=== PATIENT | male | born 1965 | race Two or more races ===

== ENCOUNTER 2023-11-12 12:00 | Inpatient (IN) | payer OTHER ==
[~2023-11-12] VITALS: Ht 190.5 cm; Wt 108.9 kg
[2023-11-12] MEDS ORDERED: AVALIDE 300-121 EACH (13:45)
[2023-11-12] MEDS ORDERED: CARVEDILOL12.5 MG (13:45)
[2023-11-19] MEDS ORDERED: LIDOCAINE HCL 1%/EPINEPHRINE 20ML VIAL IJ ONE ×2 (13:29→15:00)
[2023-11-19] MEDS ORDERED: BUPIVACAINE HCL/Mpf 0.5% 10ML VIAL ONE (13:29)
[2023-11-19] MEDS ORDERED: METRONIDAZOLE/SODIUM CHLORIDE 500 MG/100 ML PIGGYBACK IV ONE ×2 (13:29→15:00)
[2023-11-19] MEDS ORDERED: BUPIVACAINE HCL/PF 0.25% 30ML VIAL InF ONE (15:00)
[2023-11-19] MEDS ORDERED: levoFLOXacin IN DEXTROSE 5 % 5 MG/ML PIGGYBAG IV ONE (15:00)
[2023-11-19] MEDS ORDERED: DEXTROSE 50 % IN WATER 0.5 G/ML DISP.SYRIN IV PRN (17:15)
[2023-11-19] MEDS ORDERED: 0.9 % SODIUM CHLORIDE 1,000 ML IV SCH (17:15)
[2023-11-19] MEDS ORDERED: OxyCODONE HCL 5 MG TABLET (ROXICODONE) PO PRN (17:15)
[2023-11-19] MEDS ORDERED: ONDANSETRON HCL 2 MG/ML VIAL IV PRN (17:15)
[2023-11-19] MEDS ORDERED: MORPHINE SULFATE 4 MG/ML CARTRIDGE IV PRN (17:15)
[2023-11-19 19:48] LABS: HEMATOCRIT 41.9 % (39.0-48.0); HEMOGLOBIN 14.2 g/dL (13-16.00); MEAN CORPUSCULAR HEMOGLOBIN 30.1 pg (27.00-32.0); MEAN CORPUSCULAR HGB CONC 33.8 g/dl (32.0-36.0); PLATELET COUNT 238 K/uL (150-450); RED BLOOD COUNT 4.71 M/uL (4.00-6.00); RED CELL DISTRIBUTION WIDTH 13.5 % (11.5-14.5)
[2023-11-19] MEDS ORDERED: ACETAMINOPHEN 500 MG GEL..CAP PO SCH (20:00)
[2023-11-19 20:25] LABS: ALBUMIN 3.4 gm/dL (3.4-5.0); CALCIUM 8.9 mg/dL (8.5-10.1); CREATININE SERUM 1.02 mg/dL (0.70-1.30); GFR 75.28; MAGNESIUM 2.2 mg/dL (1.8-2.4); POTASSIUM 4.43 mEq/L (3.5-5.1)
[2023-11-19] MEDS ORDERED: FAMOTIDINE/PF 20 MG/2 ML VIAL ONE (20:37)
[2023-11-19] MEDS ORDERED: FAMOTIDINE/PF 20 MG/2 ML VIAL IV PUSH SCH (21:00)
[2023-11-20] MEDS ORDERED: GABAPENTIN 300 MG CAPSULE PO SCH (01:00)
[2023-11-20] MEDS ORDERED: METRONIDAZOLE/SODIUM CHLORIDE 500 MG/100 ML PIGGYBACK IV SCH (01:00)
[2023-11-20] MEDS ORDERED: ENALAPRILAT DIHYDRATE 1.25 MG/ML VIAL IV PRN (04:30)
[2023-11-20] MEDS ORDERED: HYDROCHLOROTHIAZIDE 12.5 MG CAPSULE PO SCH (09:00)
[2023-11-20] MEDS ORDERED: HYOSCYAMINE SULFATE 0.125 MG TAB.SUBL SL SCH (09:00)
[2023-11-20] MEDS ORDERED: IRBESARTAN 300 MG TABLET PO SCH (09:00)
[2023-11-20] MEDS ORDERED: CARVEDILOL 25 MG TABLET PO SCH (09:00)
[2023-11-20 10:29] LABS: HEMOGLOBIN 14.2 g/dL (13-16.00); MEAN CELL VOLUME 89.4 fL (80.0-100.00); MEAN CORPUSCULAR HEMOGLOBIN 30.2 pg (27.00-32.0); MEAN CORPUSCULAR HGB CONC 33.8 g/dl (32.0-36.0); PLATELET COUNT 249 K/uL (150-450); RED BLOOD COUNT 4.69 M/uL (4.00-6.00); RED CELL DISTRIBUTION WIDTH 13.4 % (11.5-14.5)
[2023-11-20 11:09] LABS: ALBUMIN 2.9 gm/dL (3.4-5.0); CALCIUM 8.4 mg/dL (8.5-10.1); CREATININE SERUM 0.74 mg/dL (0.70-1.30); GFR 109.02; MAGNESIUM 1.9 mg/dL (1.8-2.4); PHOSPHOROUS 2.8 mg/dL (2.5-4.9); POTASSIUM 4.36 mEq/L (3.5-5.1)
[2023-11-20] MEDS ORDERED: ENOXAPARIN SODIUM 40 MG/0.4 ML SYRINGE SUBCUTANEO SCH (17:00)
[2023-11-21 06:50] LABS: HEMOGLOBIN 14.4 g/dL (13-16.00); MEAN CORPUSCULAR HEMOGLOBIN 30.5 pg (27.00-32.0); MEAN CORPUSCULAR HGB CONC 34.2 g/dl (32.0-36.0); PLATELET COUNT 219 K/uL (150-450); RED BLOOD COUNT 4.72 M/uL (4.00-6.00); RED CELL DISTRIBUTION WIDTH 13.4 % (11.5-14.5)
[2023-11-21 07:35] LABS: CALCIUM 8.3 mg/dL (8.5-10.1); CREATININE SERUM 0.84 mg/dL (0.70-1.30); GFR 94.18; MAGNESIUM 1.8 mg/dL (1.8-2.4); PHOSPHOROUS 2.3 mg/dL (2.5-4.9); POTASSIUM 4.4 mEq/L (3.5-5.1)
[2023-11-21] MEDS ORDERED: ENOXAPARIN SODIUM 40 MG/0.4 ML SYRINGE SUBCUTANEO SCH (09:00)
[2023-11-23 07:40] LABS: HEMATOCRIT 34.6 % (39.0-48.0); HEMOGLOBIN 11.8 g/dL (13-16.00); MEAN CELL VOLUME 88.4 fL (80.0-100.00); MEAN CORPUSCULAR HEMOGLOBIN 30.2 pg (27.00-32.0); MEAN CORPUSCULAR HGB CONC 34.1 g/dl (32.0-36.0); PLATELET COUNT 251 K/uL (150-450); RED BLOOD COUNT 3.91 M/uL (4.00-6.00); RED CELL DISTRIBUTION WIDTH 12.9 % (11.5-14.5)
[2023-11-23 08:45] LABS: BILIRUBIN TOTAL 1.43 mg/dL (0.3-1.2); CALCIUM 8.1 mg/dL (8.5-10.1); CREATININE SERUM 0.56 mg/dL (0.70-1.30); GFR 150.38; GLOBULINA 3.7 G/DL (2.4-3.5); TOTAL PROTEIN 5.7 gm/dL (6.4-8.2)
[2023-11-23] MEDS ORDERED: HYOSCYAMINE0.125 M1 SL (11:02)
[2023-11-23] MEDS ORDERED: PEPCID AC20 MG PO (11:07)
[2023-11-23] MEDS ORDERED: TRAM1TAB98 PO (11:07)
[2023-11-23] MEDS ORDERED: INTESTINEX680 M1 PO (11:07)
[2023-11-23] MEDS ORDERED: PERCOCET 5-3251 EACH PO (11:18)
[2023-11-23] MEDS ORDERED: POTASSIUM CHLORIDE 10 MEQ CAPSULE PO NR (11:30)
== END 2023-11-23 13:30 | disposition home or self-care (01) | DRG 331 ==
LOC: O/R 11-19 10:14 → SURH 11-19 11:45
PROVIDERS: Internal Medicine Geriatric Medicine; ADMIT Surgery; ATTEND Surgery
PROC: 0DTL4ZZ Resection of Transverse Colon, Percutaneous Endoscopic Approach (ICD-10-PCS; 2023-11-19)
PROC: 0DTM4ZZ Resection of Descending Colon, Percutaneous Endoscopic Approach (ICD-10-PCS; 2023-11-19)
PROC: 0DTN4ZZ Resection of Sigmoid Colon, Percutaneous Endoscopic Approach (ICD-10-PCS; 2023-11-19)
PROC: 0DTF4ZZ Resection of Right Large Intestine, Percutaneous Endoscopic Approach (ICD-10-PCS; principal; 2023-11-19 11:45)
DX: D12.2 Benign neoplasm of ascending colon (principal); D12.0 Benign neoplasm of cecum; D12.3 Benign neoplasm of transverse colon; K63.5 Polyp of colon; R59.0 Localized enlarged lymph nodes; D72.828 Other elevated white blood cell count; I10 Essential (primary) hypertension; Z88.6 Allergy status to analgesic agent; Z88.0 Allergy status to penicillin

== ENCOUNTER 2023-12-28 13:55 | Inpatient (IN) | payer OTHER ==
[~2023-12-28] VITALS: Ht 190.5 cm; Wt 100.7 kg
[~2023-12-28 13:55] MED LIST: AVALIDE 300-121 EACH; CARVEDILOL12.5 MG; HYOSCYAMINE0.125 M1 SL; INTESTINEX680 M1 PO; PEPCID AC20 MG PO; PERCOCET 5-3251 EACH PO; TRAM1TAB98 PO
[2023-12-28] MEDS ORDERED: MULTIVIT INFUSN,ADULT 4,VIT K 10 ML VIAL IV ONE (16:30)
[2023-12-28] MEDS ORDERED: 0.9 % SODIUM CHLORIDE 500 ML IV ONE (16:30)
[2023-12-28 17:19] LABS: HEMATOCRIT 34.6 % (39.0-48.0); HEMOGLOBIN 11.7 g/dL (13-16.00); MEAN CELL VOLUME 83.2 fL (80.0-100.00); MEAN CORPUSCULAR HEMOGLOBIN 28.1 pg (27.00-32.0); MEAN CORPUSCULAR HGB CONC 33.8 g/dl (32.0-36.0); PLATELET COUNT 519 K/uL (150-450); RED BLOOD COUNT 4.15 M/uL (4.00-6.00); RED CELL DISTRIBUTION WIDTH 13.8 % (11.5-14.5)
[2023-12-28 17:37] LABS: ALBUMIN 2.5 gm/dL (3.4-5.0); BILIRUBIN TOTAL 0.8 mg/dL (0.3-1.2); CALCIUM 9.3 mg/dL (8.5-10.1); CREATININE SERUM 1.16 mg/dL (0.70-1.30); GFR 64.66; GLOBULINA 6.5 G/DL (2.4-3.5); POTASSIUM 3.2 mEq/L (3.5-5.1)
[2023-12-28] MEDS ORDERED: ONDANSETRON HCL 2 MG/ML VIAL IV ONE (18:15)
[2023-12-28 18:48] LABS: PH,URINE 5.5 (5.0-8.0); URINE APPEARANCE Turbid; URINE BILIRRUBIN Moderate (NEGATIVE); URINE BLOOD Negative; URINE COLOR Orange; URINE GLUCOSE Negative (NEGATIVE); URINE KETONE Trace (NEGATIVE); URINE LEUKOCYTE Small; URINE NITRATE Negative
[2023-12-28 18:53] LABS: URINE BACTERIA 75.5 uL (0.0-1933); URINE EPITHELIAL CELLS 33.6 uL (0.0-38.8); URINE RBC 20.6 uL (0.0-20.8); URINE WBC 29.6 uL (0.0-23.2)
[2023-12-28 19:14] LABS: URINE CAST > 21.83 uL (0.0-1.40); URINE PROTEIN 100 (NEGATIVE)
[2023-12-28 19:37] LABS: AMYLASE 34 U/L (25-115); LIPASE 34 U/L (13-75)
[2023-12-28 23:12] LABS: HEMOGLOBIN 10.7 g/dL (13-16.00); MEAN CORPUSCULAR HEMOGLOBIN 28.1 pg (27.00-32.0); MEAN CORPUSCULAR HGB CONC 33.4 g/dl (32.0-36.0); PLATELET COUNT 453 K/uL (150-450); RED BLOOD COUNT 3.81 M/uL (4.00-6.00); RED CELL DISTRIBUTION WIDTH 13.9 % (11.5-14.5)
[2023-12-28] MEDS ORDERED: levoFLOXacin IN DEXTROSE 5 % 5 MG/ML PIGGYBAG IV ONE (23:30)
[2023-12-28] MEDS ORDERED: ACETAMINOPHEN 500 MG GEL..CAP PO PRN (23:45)
[2023-12-28] MEDS ORDERED: 0.9 % SODIUM CHLORIDE 1,000 ML IV SCH (23:45)
[2023-12-28] MEDS ORDERED: POTASSIUM CHLORIDE IN 0.9%NACL 1,000 ML IV ONE (23:45)
[2023-12-28] MEDS ORDERED: ONDANSETRON HCL 4 MG in 0.9 % SODIUM CHLORIDE 50 ML IV PRN (23:45)
[2023-12-29] MEDS ORDERED: PIPERACILLIN/TAZOBACTAM SODIUM 3.375 GM in DEXTROSE 5 % IN WATER 100 ML IV SCH
[2023-12-29 01:13] LABS: INR 1.19; PARTIAL THROMBOPLASTIN TIME 28.9 SECONDS (22.0-34.0); PROTHROMBIN TIME 12.8 SECONDS (9.0-11.5)
[2023-12-29 01:29] LABS: PHOSPHOROUS 3.2 mg/dL (2.5-4.9)
[2023-12-29 01:42] LABS: C-REACTIVE PROTEIN 21.8 MG/DL (0.00-0.29)
[2023-12-29 02:03] VITALS: BP 119/68; O2SAT 98
[2023-12-29 09:00] VITALS: BP 106/55; O2SAT 98
[2023-12-29] MEDS ORDERED: IRBESARTAN 300 MG TABLET PO SCH (09:00)
[2023-12-29] MEDS ORDERED: FAMOTIDINE/PF 20 MG in 0.9 % SODIUM CHLORIDE 8 ML IV PUSH SCH (09:00)
[2023-12-29] MEDS ORDERED: ENALAPRILAT DIHYDRATE 1.25 MG/ML VIAL IV PRN (10:45)
[2023-12-29] MEDS ORDERED: ENOXAPARIN SODIUM 40 MG/0.4 ML SYRINGE SUBCUTANEO NR (11:00)
[2023-12-29] MEDS ORDERED: SOD FERRIC GLUC COMPLX/SUCROSE 62.5 MG in 0.9 % SODIUM CHLORIDE 50 ML IV SCH (12:00)
[2023-12-29] MEDS ORDERED: Cyanocobalamin/Mecobalamin 1 TAB.SL SL SCH (12:00)
[2023-12-29 18:09] VITALS: BP 120/60; O2SAT 94
[2023-12-30 00:55] VITALS: BP 106/69; O2SAT 99
[2023-12-30 07:05] LABS: HEMOGLOBIN 10.3 g/dL (13-16.00); MEAN CELL VOLUME 84.1 fL (80.0-100.00); MEAN CORPUSCULAR HEMOGLOBIN 27.9 pg (27.00-32.0); MEAN CORPUSCULAR HGB CONC 33.2 g/dl (32.0-36.0); PLATELET COUNT 412 K/uL (150-450); RED BLOOD COUNT 3.68 M/uL (4.00-6.00); RED CELL DISTRIBUTION WIDTH 13.7 % (11.5-14.5)
[2023-12-30 07:14] LABS: CALCIUM 8.6 mg/dL (8.5-10.1); CREATININE SERUM 0.61 mg/dL (0.70-1.30); GFR 135.76; MAGNESIUM 1.9 mg/dL (1.8-2.4); PHOSPHOROUS 3.4 mg/dL (2.5-4.9); POTASSIUM 3.73 mEq/L (3.5-5.1)
[2023-12-30 08:25] VITALS: BP 113/68; O2SAT 95
[2023-12-30] MEDS ORDERED: ENOXAPARIN SODIUM 40 MG/0.4 ML SYRINGE SUBCUTANEO SCH (09:00)
[2023-12-30 15:41] VITALS: BP 117/68; O2SAT 98
[2023-12-31 00:05] VITALS: BP 119/74; O2SAT 96
[2023-12-31 08:31] VITALS: BP 114/65; O2SAT 95
[2023-12-31 16:00] VITALS: BP 115/64; O2SAT 98
[2023-12-31] MEDS ORDERED: CHOLESTYRAMINE/ASPARTAME LIGHT 4 G/PKT PACKET PO STA (19:21)
[2023-12-31] MEDS ORDERED: LACTOBACILLUS ACIDOPHILUS 1 CAP CAP PO NR (19:30)
[2024-01-01] VITALS: BP 125/74; O2SAT 96
[2024-01-01 05:30] LABS: HEMATOCRIT 31.1 % (39.0-48.0); HEMOGLOBIN 10.5 g/dL (13-16.00); MEAN CELL VOLUME 83.8 fL (80.0-100.00); MEAN CORPUSCULAR HEMOGLOBIN 28.3 pg (27.00-32.0); MEAN CORPUSCULAR HGB CONC 33.8 g/dl (32.0-36.0); PLATELET COUNT 441 K/uL (150-450); RED BLOOD COUNT 3.71 M/uL (4.00-6.00); RED CELL DISTRIBUTION WIDTH 13.6 % (11.5-14.5)
[2024-01-01 07:01] LABS: CALCIUM 8.3 mg/dL (8.5-10.1); CREATININE SERUM 0.57 mg/dL (0.70-1.30); GFR 146.82; MAGNESIUM 1.6 mg/dL (1.8-2.4); PHOSPHOROUS 3.3 mg/dL (2.5-4.9); POTASSIUM 3.53 mEq/L (3.5-5.1)
[2024-01-01 07:03] LABS: C-REACTIVE PROTEIN 9.16 MG/DL (0.00-0.29)
[2024-01-01 08:00] VITALS: BP 123/78; O2SAT 97
[2024-01-01] MEDS ORDERED: DIATRIZOATE MEGLUMINE, SODIUM 30 ML BOTTLE PO STA (08:27)
[2024-01-01] MEDS ORDERED: CHOLESTYRAMINE/ASPARTAME LIGHT 4 G/PKT PACKET PO SCH (09:00)
[2024-01-01] MEDS ORDERED: LACTOBACILLUS ACIDOPHILUS 1 CAP CAP PO SCH (09:00)
[2024-01-01 11:21] LABS: ERYTHROCYTE SEDIMENTATION RATE 89 mm/hr
[2024-01-01] MEDS ORDERED: AMOX1TAB5 PO (12:53)
== END 2024-01-01 18:06 | disposition home or self-care (01) | DRG 372 ==
LOC: ER 13:57 → MEDJ 23:37 → SURG 12-29 16:17
PROVIDERS: Emergency Medicine; General Practice; Internal Medicine Geriatric Medicine; Nurse Practitioner Family; ADMIT Surgery; ATTEND Surgery
PROC: BW21YZZ Computerized Tomography (CT Scan) of Abdomen and Pelvis using Other Contrast (ICD-10-PCS; principal; 2024-01-01)
DX: K65.1 Peritoneal abscess (principal); C78.6 Secondary malignant neoplasm of retroperitoneum and peritoneum; D64.9 Anemia, unspecified; I95.9 Hypotension, unspecified; I10 Essential (primary) hypertension